=== PATIENT | female | born 2000 | race African-American/Black ===

== ENCOUNTER 2023-12-10 12:00 | Emergency (ER) | payer SELFPAY ==
[2023-12-10 12:19] VITALS: BP 122/76; PULSE 89; RESP 20; TEMP 99.7; BMI 21.6
[2023-12-10 14:26] LABS: BASO % 0.4 % (0-2.0); EOS % 2.9 % (0-4.5); HEMATOCRIT 40.4 % (32.4-45.2); HEMOGLOBIN 13.8 GM/dL (10.7-15.3); LYMPH % 24.3 % (8-40); MCH 33.3 pg (25.7-33.7); MCHC 34.1 g/dl (32.0-36.0); MEAN CELL VOLUME 97.7 fl (80-96); MEAN PLT VOLUME 7.8 fl (7.5-11.1); MONO % 18.4 % (3.8-10.2); PLATELET COUNT 160 10^3/uL (134-434); RBC 4.13 M/mm3 (3.60-5.2); WHITE BLOOD COUNT 3.8 K/mm3 (4.0-10.0)
[2023-12-10 14:27] LABS: URINE APPEARANCE CLEAR; URINE BILIRUBIN NEGATIVE (NEGATIVE); URINE COLOR YELLOW; URINE GLUCOSE (UA) NEGATIVE (NEGATIVE); URINE KETONE NEGATIVE (NEGATIVE); URINE LEUK ESTERASE NEGATIVE (NEGATIVE); URINE NITRITE NEGATIVE (NEGATIVE); URINE PROTEIN NEGATIVE (NEGATIVE)
[2023-12-10 14:51] LABS: POTASSIUM 3.8 mmol/L (3.5-5.1)
[2023-12-10 14:53] LABS: ALBUMIN 3.6 g/dl (3.4-5.0); BLOOD UREA NITROGEN 8.6 mg/dL (7-18); CALCIUM 8.5 mg/dL (8.5-10.1)
[2023-12-10 14:57] LABS: CREATININE 0.6 mg/dL (0.55-1.3)
[2023-12-10 14:58] LABS: BILIRUBIN,TOTAL 0.2 mg/dL (0.2-1); TOT PROT 7.2 g/dl (6.4-8.2)
== END 2023-12-10 15:40 | disposition home or self-care (01) ==
LOC: JER 12:00
DX: U07.1 COVID-19 (principal); R21 Rash and other nonspecific skin eruption; R53.1 Weakness
CPT/HCPCS: 0241U-QW; 36415; 80053; 81003; 84703; 85025; 87086; 87651; 99283-25